=== PATIENT | female | born 1960 | race Caucasian/White ===

== ENCOUNTER → 2018-10-02 07:27 | Outpatient (CLI) | payer BC, SELFPAY ==
[2018-10-02 08:32] LABS: Alanine Aminotransferase 18 U/L (12-78); Albumin Level 3.6 gm/dL (3.4-5.0); Alkaline Phosphatase 75 U/L (46-116); Anion Gap 12.5 mEq/L (5-15); Aspartate Amino Transferase 6 U/L (15-37); Bilirubin,Total 0.4 mg/dL (0.2-1.0); Blood Urea Nitrogen 9 mg/dL (7-18); Calcium 9.6 mg/dL (8.5-10.1); Carbon Dioxide 29 mmol/L (21.0-32.0); Chloride 103 mmol/L (98-107); Chol/HDL Ratio 5.8 (1-3.5); Cholesterol 230 mg/dL (140-200); Creatinine,Serum 0.56 mg/dL (0.55-1.02); Estimated Glomerular Filt Rate 112 ml/min (>60); GFR (African American) 135 ML/MIN (>60); Globulin 3.6 gm/dl (1.3-3.2); Glucose 120 mg/dL (74-106); HDL Cholesterol 40 mg/dL (29-89); LDL Cholesterol 147 mg/dL (0-130); Potassium 4.5 mmoL/L (3.5-5.1); Sodium 140 mmol/L (136-145); Total Protein,Serum 7.2 gm/dL (6.4-8.2); Triglycerides 215 mg/dL (30-200); VLDL Cholesterol 43 mg/dL (0-40)
== END ==
PROVIDERS: Visit Provider Nurse Practitioner Family
DX: E78.2 Mixed hyperlipidemia (principal); R73.03 Prediabetes; I10 Essential (primary) hypertension
CPT/HCPCS: 36415; 80053; 80061; 83036

== ENCOUNTER → 2018-10-16 10:41 | Outpatient (CLI) | payer BC, SELFPAY ==
--- NOTE | 2018-10-16 10:44 | MM_ITS ---
MM Dig screening mamm BI w/CAD ORDERING PHYSICIAN : Yue Snowden PATIENT AGE: 58 years GENDER: Female COMPARISON: April 2015, August 2016, September 2017 INDICATION: ITS.REASON: SCREENING no normal. No new complaints. Previous cyst aspiration left breast. It. Family history. Unremarkable. TECHNIQUE: Standard CC and MLO images were obtained. R2 CAD reviewed. . Additional CC nipple profile views bilaterally were included today FINDINGS:. Minimal fibroglandular elements bilaterally with minimal fatty replacement. . No suspicious or dominant mass. No suspicious calcifications. Minimal residual fibroglandular elements appears similar to previous studies. Stable since 2014. Follow-up in one year adequate . IMPRESSION: Stable bilateral mammogram. No areas of concern. BI-RADS Category: 1 Negative RECOMMENDED FOLLOW-UP: 1YR 1 YEAR FOLLOW-UP (A letter has been sent to the patient regarding results of the study.)
== END ==
PROVIDERS: PCP Nurse Practitioner Family; Visit Provider Nurse Practitioner Family
DX: Z12.31 Encounter for screening mammogram for malignant neoplasm of breast (principal)
CPT/HCPCS: 77067

== ENCOUNTER → 2019-09-24 13:10 | Outpatient (CLI) | payer BC, SELFPAY ==
[2019-09-24 14:11] LABS: Hemoglobin A1C 6.1 % (0.0-7.0)
[2019-09-24 14:30] LABS: Basophils % 0.3 % (0.1-2.0); Eosinophils # 0.1 K/mm3 (0.0-0.4); Eosinophils % 1.3 % (0.1-12.0); Hematocrit 42.5 % (37.0-47.0); Hemoglobin 14.1 g/dL (12.2-16.2); Lymphocytes # 2.4 K/mm3 (0.7-4.5); Lymphocytes % 26.1 % (10-50); Mean Corpuscular HGB Conc 33.2 g/dL (31.8-35.4); Mean Corpuscular Hemoglobin 29.2 pg (27.0-31.2); Mean Corpuscular Volume 87.8 fl (81-99); Mean Platelet Volume 7.7 fl (7.4-10.4); Monocytes # 0.4 K/mm3 (0.1-1.0); Monocytes % 4.1 % (1.7-9.3); Neutrophils # 6.1 K/mm3 (1.8-7.8); Neutrophils % 68.1 % (37.0-80.0); Platelet Count 308 K/mm3 (142-424); Red Blood Count 4.84 M/mm3 (4.20-5.40); Red Cell Distribution Width 11.9 % (11.5-17.5)
[2019-09-24 15:16] LABS: Alanine Aminotransferase 17 U/L (12-78); Albumin Level 3.9 gm/dL (3.4-5.0); Albumin/Globulin Ratio 1.1 (1.1-1.8); Alkaline Phosphatase 79 U/L (46-116); Anion Gap 12.8 mEq/L (5-15); Aspartate Amino Transferase 14 U/L (15-37); Bilirubin,Total 0.4 mg/dL (0.2-1.0); Blood Urea Nitrogen 7 mg/dL (7-18); Calcium 9.8 mg/dL (8.5-10.1); Carbon Dioxide 26 mmol/L (21.0-32.0); Chloride 103 mmol/L (98-107); Cholesterol 199 mg/dL (140-200); Creatinine,Serum 0.54 mg/dL (0.55-1.02); Estimated Glomerular Filt Rate 116 ml/min (>60); GFR (African American) 140 ML/MIN (>60); Globulin 3.4 gm/dl (1.3-3.2); Glucose 114 mg/dL (74-106); HDL Cholesterol 40 mg/dL (29-89); LDL Cholesterol 130 mg/dL (0-130); Potassium 3.8 mmoL/L (3.5-5.1); Sodium 138 mmol/L (136-145); Thyroid Stimulating Hormone 1.37 uIU/ml (0.358-3.740); Total Protein,Serum 7.3 gm/dL (6.4-8.2); Triglycerides 143 mg/dL (30-200); VLDL Cholesterol 29 mg/dL (0-40)
[2019-09-25 09:20] LABS: Vitamin B12 426 pg/mL (232-1245)
== END ==
PROVIDERS: Visit Provider Nurse Practitioner Family
DX: I10 Essential (primary) hypertension (principal); E78.2 Mixed hyperlipidemia; R73.03 Prediabetes; E04.9 Nontoxic goiter, unspecified; R53.81 Other malaise
CPT/HCPCS: 36415; 80053; 80061; 82607; 82652; 83036; 84443; 85025

== ENCOUNTER → 2021-04-29 10:11 | Outpatient (CLI) | payer BC, SELFPAY ==
--- NOTE | 2021-04-29 10:14 | MM_ITS ---
PROCEDURE: MM DIG SCREENING MAMM BI W/CAD Digital Breast Tomosynthesis Included CLINICAL INDICATION: SCREENING COMPARISON: MG DMSB DIG MAMM-SCREEN CHERIE from 09/10/2016 MG DMSB DIG MAMM-SCREEN CHERIE W/CAD from 09/30/2017 MG SCBI MM Dig screening mamm BI w/CAD from 10/16/2018 TECHNIQUE: Standard CC and MLO images and 3D Tomosynthesis was obtained. R2 CAD reviewed. FINDINGS: Breast parenchyma is heterogeneously dense which may lower the sensitivity of mammography. No new dominant mass. No suspicious type microcalcifications or indirect evidence of malignancy. IMPRESSION: Normal bilateral digital screening mammograms. BI-RAD Category: 1 Negative FOLLOW-UP: 1 YR 1 Year Follow-up (A letter has been sent to the patient regarding results of the study.) Dictated by: Capo Vincent MD 04/30/2021 13:14 Capo Vincent MD in [place] 04/30/2021 13:14
== END ==
PROVIDERS: PCP Internal Medicine Adolescent Medicine; Visit Provider Nurse Practitioner Family
DX: Z12.31 Encounter for screening mammogram for malignant neoplasm of breast (principal)
CPT/HCPCS: 77063; 77067

== ENCOUNTER → 2022-08-24 12:48 | Outpatient (CLI) | payer BC, SELFPAY ==
--- NOTE | 2022-08-24 12:55 | MM_ITS ---
PROCEDURE INFORMATION: Exam: MG Bilateral Screening 3D Mammography Exam date and time: 08/24/2022 12:59 PM Age: 62 years old Clinical indication: Screening examination TECHNIQUE: Imaging protocol: Bilateral Screening tomosynthesis and 2D mammography including computer-aided detection (CAD) when performed. COMPARISON: 1. MG MM DIG SCREENING MAMM BI W/CAD 04/29/2021 10:27 AM 2. MG SCBI MM Dig screening mamm BI w/CAD 10/16/2018 10:59 AM FINDINGS: MAMMOGRAPHY: Breast composition: There are scattered areas of fibroglandular density. Mass: None. Architectural distortion: None. Calcifications: No suspicious calcifications. Asymmetric density: None. Skin thickening: None. Axillary adenopathy: None. IMPRESSION: No mammographic evidence of malignancy. Annual screening is recommended unless otherwise clinically indicated. ASSESSMENT: BI-RADS Category 1: Negative
== END ==
PROVIDERS: PCP Internal Medicine Adolescent Medicine; Visit Provider Nurse Practitioner Family
DX: Z12.31 Encounter for screening mammogram for malignant neoplasm of breast (principal)
CPT/HCPCS: 77063; 77067

== ENCOUNTER → 2022-09-22 14:15 | Outpatient (CLI) | payer BC, SELFPAY ==
--- NOTE | 2022-09-22 14:22 | US_ITS ---
FINAL REPORT CLINICAL HISTORY: ATYPICAL SQUAMOUS CELLS, FINDINGS: Transvaginal sonographic images of the pelvis were obtained. The uterus measures 5.6 x 3.6 x 3.8 cm. There are multiple hypoechoic heterogeneous areas in the myometrium consistent with uterine fibroids. The endometrium is normal. The right ovary measures 1.6 x 1.6 x 0.93 cm. The left ovary measures 2.3 x 0.75 x 1.2 cm. There is a small anechoic structure in the right ovary measuring 8 mm consistent with a small cyst. No fluid is seen in the cul-de-sac. IMPRESSION: Fibroid uterus. Reviewed, Interpreted and Dictated by Jose Martin Myers MD Transcribed by Mandie Hensley Authenticated and . [facility]
== END ==
PROVIDERS: PCP Internal Medicine Adolescent Medicine; Visit Provider Nurse Practitioner Family
DX: R87.610 Atypical squamous cells of undetermined significance on cytologic smear of cervix (ASC-US) (principal)
CPT/HCPCS: 76830

== ENCOUNTER → 2023-07-14 07:21 | Outpatient (CLI) | payer BC, SELFPAY ==
[2023-07-14 07:46] LABS: Basophils # 0.1 K/mm3 (0-0.2); Basophils % 0.9 % (0.1-2.0); Eosinophils # 0.1 K/mm3 (0.0-0.4); Eosinophils % 1.9 % (0.1-12.0); Hematocrit 42.3 % (37.0-47.0); Hemoglobin 14.6 g/dL (12.2-16.2); Lymphocytes # 1.8 K/mm3 (0.7-4.5); Lymphocytes % 29.5 % (10-50); Mean Corpuscular HGB Conc 34.5 g/dL (31.8-35.4); Mean Corpuscular Hemoglobin 29.7 pg (27.0-31.2); Mean Corpuscular Volume 86.1 fl (81-99); Mean Platelet Volume 7.6 fl (7.4-10.4); Monocytes # 0.4 K/mm3 (0.1-1.0); Monocytes % 6.2 % (1.7-9.3); Neutrophils # 3.8 K/mm3 (1.8-7.8); Neutrophils % 61.4 % (37.0-80.0); Platelet Count 228 K/mm3 (142-424); Red Blood Count 4.91 M/mm3 (4.20-5.40); Red Cell Distribution Width 12.2 % (11.5-17.5); White Blood Count 6.2 K/mm3 (4.8-10.8)
[2023-07-14 10:52] LABS: Alanine Aminotransferase 14 U/L (12-78); Albumin Level 4.2 g/dl (3.5-5.0); Albumin/Globulin Ratio 1.4 (1.1-1.8); Alkaline Phosphatase 72 U/L (38-126); Amylase 72 U/L (30-110); Anion Gap 12.2 mEq/L (5-15); Aspartate Amino Transferase 20 U/L (14-36); Bilirubin,Total 0.5 mg/dl (0.2-1.3); Blood Urea Nitrogen 6 mg/dl (7-17); Calcium 9.8 mg/dl (8.4-10.2); Carbon Dioxide 27 mmol/L (22.0-30.0); Chloride 102 mmol/L (98-107); Chol/HDL Ratio 5.7 (1-3.5); Cholesterol 222 mg/dl (140-200); Estimated Glomerular Filt Rate 101 ml/min (>60); GFR (African American) 123 ML/MIN (>60); Glucose 107 mg/dl (74-100); HDL Cholesterol 39 mg/dl (40-60); Lipase 59 U/L (23-300); Potassium 4.2 mmoL/L (3.5-5.1); Sodium 137 mmol/L (136-145); Total Protein,Serum 7.2 g/dl (6.3-8.2); Triglycerides 194 mg/dl (30-150); VLDL Cholesterol 39 mg/dL (0-40)
[2023-07-14 11:02] LABS: Direct LDL Cholesterol 130.37 mg/dL (100-129)
[2023-07-14 11:03] LABS: 25-OH Vitamin D, Total 33.4 ng/mL (30-100)
[2023-07-14 16:10] LABS: Hemoglobin A1C 5.7 % (4.0-6.0)
== END ==
PROVIDERS: PCP Nurse Practitioner Family; Visit Provider Nurse Practitioner Family
DX: Z00.00 Encounter for general adult medical examination without abnormal findings (principal); I10 Essential (primary) hypertension; R73.03 Prediabetes; E78.2 Mixed hyperlipidemia
CPT/HCPCS: 36415; 80053; 80061; 82150; 82306; 83036; 83690; 85025

== ENCOUNTER → 2023-09-08 09:50 | Outpatient (CLI) | payer BC, SELFPAY ==
--- NOTE | 2023-09-08 09:53 | MM_ITS ---
PROCEDURE INFORMATION: Exam: MG Bilateral Screening 3D Mammography Exam date and time: 09/08/2023 9:57 AM Age: 63 years old Clinical indication: Screening examination TECHNIQUE: Imaging protocol: Bilateral Screening tomosynthesis and 2D mammography including computer-aided detection (CAD) when performed. COMPARISON: 1. MG MM DIG SCREENING MAMM BI W/CAD 08/24/2022 12:59 PM 2. MG MM DIG SCREENING MAMM BI W/CAD 04/29/2021 10:27 AM 3. MG SCBI MM Dig screening mamm BI w/CAD 10/16/2018 10:59 AM FINDINGS: MAMMOGRAPHY: Breast composition: There are scattered areas of fibroglandular density. Mass: No suspicious masses. Architectural distortion: No suspicious distortion. Calcifications: No suspicious calcifications. Asymmetric density: None. Skin thickening: None. Axillary adenopathy: None. IMPRESSION: No mammographic evidence of malignancy. Annual screening is recommended unless otherwise clinically indicated. ASSESSMENT: BI-RADS Category 1: Negative
== END ==
PROVIDERS: PCP Nurse Practitioner Family; Visit Provider Nurse Practitioner Family
DX: Z12.31 Encounter for screening mammogram for malignant neoplasm of breast (principal)
CPT/HCPCS: 77063; 77067

== ENCOUNTER → 2023-09-29 13:50 | Outpatient (CLI) | payer BC, SELFPAY ==
--- NOTE | 2023-09-29 13:58 | MM_ITS ---
PROCEDURE INFORMATION: Exam: US Right Breast, Complete MG Right Diagnostic Breast Tomosynthesis Exam date and time: 09/29/2023 1:59 PM Age: 63 years old Clinical indication: Patient recalled on the basis of a screening mammogram for further evaluation; Right breast; mass TECHNIQUE: Imaging protocol: Complete ultrasound of all four quadrants of the right breast and the retroareolar regions, including ultrasound of the axilla when performed. Right Diagnostic tomosynthesis and 2D mammography including computer-aided detection (CAD) when performed. Unilateral or bilateral exam. COMPARISON: MG MM DIG SCREENING MAMM BI W/CAD 09/08/2023 9:57 AM FINDINGS: MAMMOGRAPHY: Digital diagnostic spot compression views of the right breast and 90 degree lateral view of the right breast demonstrate normal overlapping fibroglandular structures without persistent mass or asymmetry identified. 0.3 cm fat containing and normal appearing lymph node is noted overlying the left axilla in the MLO projection. ULTRASOUND: Sonographic images of the right breast including the retroareolar region, all 4 quadrants and the axilla do not demonstrate any solid masses. Incidental 0.3 cm upper outer quadrant cyst 2 cm from the nipple. No architectural distortion or acoustical shadowing. No skin thickening or axillary adenopathy. IMPRESSION: No mammographic or sonographic evidence of malignancy. Annual bilateral mammographic screening is recommended unless otherwise clinically indicated. ASSESSMENT: BI-RADS Category 2: Benign
== END ==
PROVIDERS: PCP Nurse Practitioner Family; Visit Provider Nurse Practitioner Family
DX: R92.8 Other abnormal and inconclusive findings on diagnostic imaging of breast (principal)
CPT/HCPCS: 76641; 77061; 77065; G0279

== ENCOUNTER 2024-02-06 14:01 | Outpatient (CLI) | payer BC, SELFPAY ==
--- NOTE | 2024-02-06 14:09 | XR_ITS ---
FINAL REPORT CLINICAL HISTORY: LT THUMB PAIN, possible metal foreign body distal left thumb. COMPARISON: None FINDINGS: AP, oblique and lateral views of the left thumb were obtained. There is no prior exam for comparison. There is no acute fracture or dislocation. No evidence of a radiopaque foreign body is seen. However there is advanced hypertrophic change. Of osteoarthritis primarily at the basilar joint, with fragmentation and osteophytes at that articulation. The soft tissues appear normal. IMPRESSION: No acute osseous abnormality of the left thumb. 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 Reviewed, Interpreted and Dictated by Jose Martin Myers MD Transcribed by Neelam Bolanos Authenticated and [facility]
== END 2024-02-06 23:59 ==
LOC: RAD 14:03
PROVIDERS: PCP Nurse Practitioner Family; Visit Provider Nurse Practitioner Family
DX: M79.645 Pain in left finger(s) (principal)
CPT/HCPCS: 73140

== ENCOUNTER 2024-09-07 07:46 | Outpatient (CLI) | payer BC, SELFPAY ==
--- NOTE | 2024-09-07 07:59 | MM_ITS ---
PROCEDURE INFORMATION: Exam: MG Bilateral Screening 3D Mammography Exam date and time: 09/07/2024 7:48 AM Age: 64 years old Clinical indication: Screening examination TECHNIQUE: Imaging protocol: Bilateral Screening tomosynthesis and 2D mammography including computer-aided detection (CAD) when performed. COMPARISON: 1. MG MM DIG MAMM DX UNILAT RT CAD 09/29/2023 2:10 PM 2. MG MM DIG SCREENING MAMM BI W/CAD 09/08/2023 9:57 AM FINDINGS: MAMMOGRAPHY: Breast composition: There are scattered areas of fibroglandular density. Mass: No suspicious masses. Architectural distortion: None. Calcifications: No suspicious calcifications. Asymmetric density: None. Skin thickening: None. Axillary adenopathy: None. IMPRESSION: No mammographic evidence of malignancy. Annual screening is recommended unless otherwise clinically indicated. ASSESSMENT: BI-RADS Category 1: Negative.
--- NOTE | 2024-09-07 07:59 | XR_ITS ---
FINAL REPORT CLINICAL HISTORY: .SCREENING COMPARISON: None FINDINGS: Using L1-4, the bone mineral density of the spine is 1.071 g/cm2, corresponding to T-score of 0.2 which is within normal limits. Using the left hip, the bone mineral density of the total hip is 0.772 g/cm2, corresponding to a T-score of -1.4 which is consistent with low bone density. Using the right hip, the bone mineral density of the femoral neck is 0.671 g/cm2, corresponding to a T-score of -1.6 which is consistent with low bone density. FRAX 10 year fracture risk is 1.7% for a hip fracture and 17% for a major osteoporotic fracture. NOTE: T-score: Standard deviation compared with peak bone mass of young adult mean. *Following the recommendations of the International Society of Bone densitometry, classification of hip BMD is based on the lower of two T-scores; total hip or femoral neck. IMPRESSION: Diminished bone mineral density consistent with low bone density. Reviewed, Interpreted and Dictated by Eloy Doyle III, MD Transcribed by Claudette Marina Authenticated and [facility]
[2024-09-07 08:13] LABS: Basophils # 0.1 K/mm3 (0-0.2); Basophils % 1.4 % (0.1-2.0); Eosinophils # 0.1 K/mm3 (0.0-0.4); Eosinophils % 2.3 % (0.1-12.0); Hematocrit 40.1 % (37.0-47.0); Hemoglobin 14.2 g/dL (12.2-16.2); Lymphocytes # 1.6 K/mm3 (0.7-4.5); Lymphocytes % 33.9 % (10-50); Mean Corpuscular HGB Conc 35.3 g/dL (31.8-35.4); Mean Platelet Volume 7.6 fl (7.4-10.4); Monocytes # 0.3 K/mm3 (0.1-1.0); Monocytes % 6.9 % (1.7-9.3); Neutrophils # 2.6 K/mm3 (1.8-7.8); Neutrophils % 55.5 % (37.0-80.0); Platelet Count 188 K/mm3 (142-424); Red Blood Count 4.72 M/mm3 (4.20-5.40); Red Cell Distribution Width 12.8 % (11.5-17.5); White Blood Count 4.7 K/mm3 (4.8-10.8)
[2024-09-07 08:47] LABS: Hemoglobin A1C 5.6 % (4.0-6.0)
[2024-09-07 09:04] LABS: Albumin Level 4.3 g/dl (3.5-5.0); Chloride 106 mmol/L (98-107); Sodium 138 mmol/L (136-145)
[2024-09-07 09:05] LABS: Potassium 4.4 mmoL/L (3.5-5.1)
[2024-09-07 09:07] LABS: Alanine Aminotransferase 11 U/L (12-78); Albumin/Globulin Ratio 1.6 (1.1-1.8); Anion Gap 9.4 mEq/L (5-15); Aspartate Amino Transferase 21 U/L (14-36); Blood Urea Nitrogen 8 mg/dl (7-17); Carbon Dioxide 27 mmol/L (22.0-30.0); Estimated Glomerular Filt Rate 125 ml/min (>60); GFR (African American) 151 ML/MIN (>60); Globulin 2.7 g/dL (1.3-3.2)
[2024-09-07 09:08] LABS: Alkaline Phosphatase 48 U/L (38-126); Bilirubin,Total 0.7 mg/dl (0.2-1.3); Calcium 9.8 mg/dl (8.4-10.2); Chol/HDL Ratio 4.9 (1-3.5); Cholesterol 220 mg/dl (140-200); Glucose 112 mg/dl (74-100); HDL Cholesterol 45 mg/dl (40-60); Triglycerides 135 mg/dl (30-150); VLDL Cholesterol 27 mg/dL (0-40)
[2024-09-07 09:19] LABS: Direct LDL Cholesterol 138.82 mg/dL (100-129)
[2024-09-07 09:32] LABS: 25-OH Vitamin D, Total 24.4 ng/mL (30-100)
[2024-09-07 09:36] LABS: Thyroid Stimulating Hormone 3.03 uIU/mL (0.465-4.68)
== END 2024-09-07 23:59 | disposition home or self-care (01) ==
LOC: RAD 07:47
PROVIDERS: PCP Nurse Practitioner Family; Visit Provider Nurse Practitioner Family
DX: Z12.31 Encounter for screening mammogram for malignant neoplasm of breast (principal); Z78.0 Asymptomatic menopausal state; Z00.00 Encounter for general adult medical examination without abnormal findings; I10 Essential (primary) hypertension; E78.2 Mixed hyperlipidemia; R73.03 Prediabetes; E55.9 Vitamin D deficiency, unspecified
CPT/HCPCS: 36415; 77063; 77067; 77080; 80050; 80053; 80061; 82306; 83036; 84443; 85025

== ENCOUNTER 2025-09-10 10:48 | Outpatient (CLI) | payer BC, SELFPAY ==
--- NOTE | 2025-09-10 10:50 | MM_ITS ---
PROCEDURE INFORMATION: Exam: MG Bilateral Screening 3D Mammography Exam date and time: 09/10/2025 10:51 AM Age: 65 years old Clinical indication: Screening examination TECHNIQUE: Imaging protocol: Bilateral Screening tomosynthesis and 2D mammography including computer-aided detection (CAD) when performed. COMPARISON: 1. MG MM DIG SCREENING MAMM BI W/CAD 09/07/2024 7:48 AM 2. MG MM DIG MAMM DX UNILAT RT CAD 09/29/2023 2:10 PM 3. MG MM DIG SCREENING MAMM BI W/CAD 09/08/2023 9:57 AM FINDINGS: MAMMOGRAPHY: Breast composition: There are scattered areas of fibroglandular density. Mass: None. Architectural distortion: None. Calcifications: No suspicious calcifications. Asymmetric density: None. Skin thickening: None. Axillary adenopathy: None. IMPRESSION: No mammographic evidence of malignancy. Annual screening is recommended unless otherwise clinically indicated. ASSESSMENT: BI-RADS Category 1: Negative.
--- OUTSIDE RECORDS SUMMARY | 2025-09-10 10:50 | XMS_ITS | Encounter Summary ---
Author Organization [employer] ([place], [place], [place], [place]) Address [address] [place] [address] Care Team Providers Care Director Of Dietary Name Role Phone Nilesh Farias MD Primary Care Provider + [phone] Encounter Details Date Type Department Care Team (Late st Contact Info) Description 06/20/2025 Telephone [facility] Endoscopy [address] [place] [address] Roxy Roger RN Social History Tobacco Use Types Packs/Day Years Used Date Smoking Tobacco: Every Day Cigarettes Smokeless Tobacco: Never Alcohol Use Standard Drinks/Week Comments Not Currently 0 (1 standard drink = 0.6 oz pur e alcohol) Comments Unknown Sex and Gender Information Value Date Recorded Sex Assigned at Not on file Legal Sex Female 5:22 PM CDT Gender Identity Not on file Sexual Orientation Not on file documented as of this encounter Miscellaneous Notes * Telephone Encounter - Roxy Roger RN - 06/20/2025 9:59 AM EDT Type of Procedure:colon Date of Procedure:06/27 Arrival Time:15 Procedure Time:1018 Point of Contact:phonecall Prep (if applicable):suprep documented in this encounter Plan of Treatment Not on file documented as of this encounter Visit Diagnoses Not on filedocumented in this encounter Care Teams Director Of Dietary Relationship Specialty Start Date End Date Nilesh Farias MD [address] [place] [address] PCP - General Adolescent Medicine 06/27/25 documented as of this encounter
--- OUTSIDE RECORDS SUMMARY | 2025-09-10 10:50 | XMS_ITS | Referral Summary ---
Author Organization [employer] ([place], [place], [place], [place]) Address [address] [place] [address] Care Team Providers Care Security Agent Name Role Phone Nilesh Farias MD Primary Care Provider + [phone] Encounters Date Type Department Care Team Description 06/27/2025 10:00 AM EDT Anesthesia Event [facility] Endoscopy [address] [place] [id number] Jazmin Peterson MD 06/27/2025 10:18 AM EDT - 06/27/2025 11:12 AM EDT Surgery [facility] Endoscopy 1 [place] [id number] Rony Isbell MD COLONOSCOPY, WITH POLYPECTOMY 06/27/2025 9:24 AM EDT - 06/27/2025 11:09 AM EDT Hospital Encounter [facility] Endoscopy [address] [place] [address] Rony Isbell MD History of colon polyps Discharge Disposition: Home or Self Care 06/20/2025 Telephone [facility] Endoscopy [address] [place] [address] Roxy Roger RN from Last 3 Months Allergies Active Allergy Reactions Criticality Noted Date Comments Latex 02/28/2025 Penicillin 02/28/2025 Medications carvediloL (COREG) 25 MG tablet Take 1 tablet (25 mg total) by mouth 2 (two) times daily. Active pantoprazole (PROTONIX) 20 MG tablet Take 1 tablet (20 mg total) by mouth daily. 06/17/2025 Active Active Problems Problem Noted Date Diagnosed Date History of colon polyps 02/28/2025 Social History Tobacco Use Types Packs/Day Years Used Date Smoking Tobacco: Every Day Cigarettes Smokeless Tobacco: Never Tobacco Cessation:Ready to Q uit: Not Asked; Counseling Given: Not Answered Alcohol Use Standard Drinks/Week Comments Not Currently 0 (1 standard drink = 0.6 oz pur e alcohol) Comments No Sex and Gender Information Value Date Recorded Sex Assigned at Not on file Legal Sex Female 5:22 PM CDT Gender Identity Not on file Sexual Orientation Not on file Last Filed Vital Signs Vital Sign Reading Time Taken Comments Blood Pressure 132/76 06/27/2025 11:04 AM EDT Pulse 67 06/27/2025 10:45 AM EDT Temperature 36.3 C (97.3 F) 06/27/2025 10:50 AM EDT Respiratory Rate 40 06/27/2025 10:45 AM EDT Oxygen Saturation 97% 06/27/2025 10:45 AM EDT Inhaled Oxygen Concentration - - Weight 64.4 kg (142 lb) 06/27/2025 9:47 AM EDT Height 160 cm (5' 3 ) 06/27/2025 9:47 AM EDT Body Mass Index 25.15 06/27/2025 9:47 AM EDT Plan of Treatment Not on file Procedures Procedure Name Priority Date/Time Associated Diagnosis Comments TISSUE EXAM ([place]) AP Routine 06/27/2025 1 0:21 AM EDT History of colon polyps COLONOSCOPY, WITH POLYPECTOMY 06/27/2025 10:00 AM EDT History of colon polyps HM COLONOSCOPY Routine 07/30/2015 3:24 PM EDT from Last 3 Months or Most Recently Relevant to Health Maintenance Results * Tissue Exam (06/27/2025 10:21 AM EDT) AP RESULT See Note: [facility]Y [facility] LAB[facility] Comment: PATHOLOGY REPORT DIAGNOSIS: A. COLON, ASCENDING, POLYPECTOMY: Tubular adenoma Negative for high-grade dysplasia or malignancy B. COLON, SIGMOID; X2, POLYPECTOMY: Hyperplastic polyps Final Reviewed, Diagnosed and Electronically Signed By: XI PINZON MD CLINICAL HISTORY: Personal history of colonic polyps MICROSCOPIC DESCRIPTION: Tissue blocks are prepared and slides examined microscopically on all specimens. See diagnosis for details. GROSS DESCRIPTION: A. Received in formalin labeled ascending colon polyp are multiple shine soft tissue fragments, measuring 0.9 x 0.5 x 0.1 cm in aggregate. The specimen is filtered and submitted entirely in cassette A1. B. Received in formalin labeled sigmoid polyps x 2 are 2 shine soft tissue fragments, measuring 1.2 x 0.6 x 0.2 cm in aggregate. The specimen is filtered and submitted entirely in cassette B1. AKG See other report ([id number]) Tissue POLYP OF ASCENDING COLON / Unknown 06/27/2025 10:21 AM EDT Tissue specimen (specimen) POLYP OF SIGMOID COLON / Unknown 06/27/2025 10:26 AM EDT us Rony Isbell MD PATHOLOGY/CYTOLOGY ORDERABLES Fi nal Result PATHOLOGY AND [facility]TOLOGY LAB[facility]ATORY [address] [place] [address] * HM COLONOSCOPY (07/30/2015 3:24 PM EDT) us Althea Plunkett MD HEALTH MAINTENANCE Final Result from Last 3 Months or Most Recently Relevant to Health Maintenance Insurance BLUE CROSS/BLUE SHIELD Care Teams Security Agent Relationship Specialty Start Date End Date Nilesh Farias MD [address] [place] [id number] PCP - General Adolescent Medicine 06/27/25
--- OUTSIDE RECORDS SUMMARY | 2025-09-10 10:50 | XMS_ITS | Clinical Summary ---
Author Organization [employer] ([place], [place], [place], [place]) Address [address] [place] [address] Care Team Providers Care Machining Engineer Name Role Phone Nilesh Farias MD Primary Care Provider + [phone] Allergies Active Allergy Reactions Criticality Noted Date Comments Latex 02/28/2025 Penicillin 02/28/2025 Medications carvediloL (COREG) 25 MG tablet Take 1 tablet (25 mg total) by mouth 2 (two) times daily. Active pantoprazole (PROTONIX) 20 MG tablet Take 1 tablet (20 mg total) by mouth daily. 06/17/2025 Active Active Problems Problem Noted Date Diagnosed Date History of colon polyps 02/28/2025 Encounters Date Type Department Care Team Description 06/27/2025 10:18 AM EDT - 06/27/2025 11:12 AM EDT Surgery [facility] Endoscopy 1 [place] [address] Rony Isbell MD COLONOSCOPY, WITH POLYPECTOMY 06/27/2025 10:00 AM EDT Anesthesia Event [facility] Endoscopy 1 [place] [address] Jazmin Peterson MD 06/27/2025 9:24 AM EDT - 06/27/2025 11:09 AM EDT Hospital Encounter [facility] Endoscopy 1 [place] [address] Rony Isbell MD History of colon polyps Discharge Disposition: Home or Self Care 06/20/2025 Telephone [facility] Endoscopy 1 [place] [address] Roxy Roger RN from Last 3 Months Social History Tobacco Use Types Packs/Day Years [...] 06/27/2025 9:47 AM EDT Plan of Treatment Health Maintenance Due Date Last Done Comments CT Colonography 1961 FOBT/FIT 1961 Fit-DNA (Cologuard) 1961 Sigmoidoscopy 1961 Depression Screening (12+) 1973 Tobacco Cessation Counseling and Screening (12+) 1973 HIV Screening 1976 Hepatitis C Screening 1979 DTAP/TDAP/TD VACCINES (1 - Tdap) 1980 Pneumococcal 50+ years (1 of 2 - PCV) 1980 Pap Smear 1982 Breast Cancer Screening 2001 Lipid Panel 2006 Shingles Vaccine (Zoster) (1 of 2) 2011 COVID-19 VACCINE (1 - season) 2025 Influenza Vaccine (#1) 2025 Colonoscopy 06/27/2030 06/27/2025, 07/30/2015 Colorectal Cancer Screening 06/27/2030 Respiratory Syncytial Virus (RSV) Adult or (1 - 1-dose 75+ series) 2036 Procedures Procedure Name Priority Date/Time Associated Diagnosis [...] in cassette B1. AKG See other report ([id number]) Tissue POLYP OF ASCENDING COLON / Unknown 06/27/2025 10:21 AM EDT Tissue specimen (specimen) POLYP OF SIGMOID COLON / Unknown 06/27/2025 10:26 AM EDT us Rony Isbell MD PATHOLOGY/CYTOLOGY ORDERABLES Fi nal Result PATHOLOGY AND CYTOLOGY LABORATORY [address] * HM COLONOSCOPY (07/30/2015 3:24 PM EDT) us Althea Plunkett MD HEALTH MAINTENANCE Final Result from Last 3 Months or Most Recently Relevant to Health Maintenance Insurance BLUE CROSS/BLUE SHIELD Care Teams Machining Engineer Relationship Specialty Start Date End Date Nilesh Farias MD [address] [place] [id number] PCP - General Adolescent Medicine 06/27/25
--- OUTSIDE RECORDS SUMMARY | 2025-09-10 10:50 | XMS_ITS | Clinical Summary ---
[facility] Address [address] [place] [address] Care Team Providers Care Shale Miner Name Role Phone Nilesh Farias MD Primary Care Provider [phone] Allergies Active Allergy Reactions Criticality Noted Date Comments Penicillins 12/31/2016 Medications carvedilol (COREG) 12.5 MG tablet Take 25 mg by mouth 2 (Two) Times a Day With Meals. Active Multiple Vitamins-Mineral s (MULTI COMPLETE PO) Take by mouth Daily. Active Calcium Carbonate-Vitami n D (CALCIUM 600+D PO) Take by mouth 2 (Two) Times a Day. Active rosuvastatin (CRESTOR) 10 MG tablet Take 10 mg by mouth every night at bedtime. 0 10/02/2018 Active Active Problems Problem Noted Date Diagnosed Date Essential hypertension 10/11/2017 Mixed hyperlipidemia 10/11/2017 Family History Medical History Relation Name Comments Colon cancer Father Heart attack Father Heart disease Mother Hypertension Mother Relation Name Status Comments Father Mother Alive Social History Tobacco Use Types Packs/Day Years Used Date Smoking Tobacco: Every Day Cigarettes Smokeless Tobacco: Never Comments:1/2 PPD Alcohol Use Standard Drinks/Week Comments No 0 (1 standard drink = 0.6 oz pur e alcohol) Abuse Screen Answer Date Recorded Unsafe at Home or Work/School Not on file Feels Threatened by Someone? Not on file 07/2023 Does Anyone Keep You from Co ntacting Others or Doint Things Outside the Home? Not on file 08/22/2023 Physical Sign of Abuse Present Not on file 1 Housing Stability Answer Date Recorded Current Living Arrangements Not on file 07/2023 Potentially Unsafe Housing Conditions Not on jennifer e 08/22/2023 Family and Community Support Answer Blas e Recorded Help with Day-to-Day Activities Not on file 08/22/2023 Lonely or Isolated Not on file 08/22/2023 Employment Answer Date Recorded Do you want help finding or keeping work or a brooke b? Not on file 08/22/2023 Disabilities Answer Date Recorded Concentrating, Remembering, or Making Decisions Difficulty Not on file 08/22/2023 Doing Errands Independently Difficulty Not on fi le 08/22/2023 Education Answer Date Recorded Help with school or training? Not on file Preferred Language Not on file 08/22/2023 Comments Unknown Sex and Gender Information Value Date Recorded Sex Assigned at Not on file Legal Sex Female 10:26 AM EDT Gender Identity Not on file Sexual Orientation Not on file Last Filed Vital Signs Vital Sign Reading Time Taken Comments Blood Pressure 168/108 10/10/2018 10:40 AM EST Pulse 76 10/10/2018 10:40 AM EST Temperature - - Respiratory Rate - - Oxygen Saturation - - Inhaled Oxygen Concentration - - Weight 84.8 kg (187 lb) 10/10/2018 10:40 AM EST Height 160 cm (5' 2.99 ) 10/10/2018 10:40 AM EST Body Mass Index 33.13 10/10/2018 10:40 AM EST Plan of Treatment Health Maintenance Due Date Last Done Comments Annual Gynecologic Pelvic and Breast Exam 1961 LIPID PANEL 1961 TDAP/TD VACCINES (1 - Tdap) 1980 MAMMOGRAM 2001 COLOGUARD 2006 COLON CANCER SCREENING 5 YEAR SIGMOIDOSCOPY 2006 COLONOSCOPY [address]ER SCREENING [address] COLONOGRAPHY 2006 FECAL OCCULT BLOOD TEST 2006 FIT Testing (1 year) 2006 Pneumococcal Vaccine 50+ (1 of 1 - PCV) 2011 ZOSTER VACCINE (1 of 2) 2011 ANNUAL PHYSICAL 10/11/2017 HEPATITIS C SCREENING 10/11/2017 INFLUENZA VACCINE 06/14/[address] [place] [id number] [employer] Care Teams Shale Miner Relationship Specialty Start Date End Date Nilesh Farias MD [address] [facility] [address] [place] [id number] PCP - General Adolescent Medicine 12/31/16
== END 2025-09-10 23:59 | disposition home or self-care (01) ==
LOC: RAD 10:48
PROVIDERS: PCP Nurse Practitioner Family; Visit Provider Nurse Practitioner Family
DX: Z12.31 Encounter for screening mammogram for malignant neoplasm of breast (principal); R92.323 Mammographic fibroglandular density, bilateral breasts
CPT/HCPCS: 77063; 77067

== ENCOUNTER 2025-09-30 07:32 | Outpatient (CLI) | payer BC, SELFPAY ==
--- OUTSIDE RECORDS SUMMARY | 2025-09-30 07:35 | XMS_ITS | Clinical Summary ---
[facility] [address] [place] [address] Care Team Providers Care Brim Stiffener Name Role Phone Nilesh Farias MD Primary Care Provider [phone] Allergies Active Allergy Reactions Criticality Noted Date [...] 06/14/[address] [place] [id number] [employer] Care Teams Brim Stiffener Relationship Specialty Start Date End Date Nilesh Farias MD [address] [facility] [address] [place] [id number] PCP - General Adolescent Medicine 12/31/16
--- OUTSIDE RECORDS SUMMARY | 2025-09-30 07:35 | XMS_ITS | Referral Summary ---
Author Organization [employer] ([place], [place], [place], [place], [place]) Address [address] [place] [address] Care Team Providers Care Gas Jockey Name Role Phone Nilesh Farias MD Primary Care Provider + [phone] Allergies Active Allergy Reactions Criticality Noted Date [...] Procedure Name Priority Date/Time Associated Diagnosis Comments HM COLONOSCOPY Routine 07/30/2015 3:24 PM EDT from Last 3 Months or Most Recently Relevant to Health Maintenance Results * HM COLONOSCOPY (07/30/2015 3:24 PM EDT) us Althea Plunkett MD HEALTH MAINTENANCE Final Result from Last 3 Months or Most Recently Relevant to Health Maintenance Insurance [employer] [place] [facility] [id number] BLUE CROSS/BLUE SHIELD Care Teams Gas Jockey Relationship Specialty Start Date End Date Nilesh Farias MD [address] [place] [id number] PCP - General Adolescent Medicine 06/27/25
--- OUTSIDE RECORDS SUMMARY | 2025-09-30 07:36 | XMS_ITS | Clinical Summary ---
Author Organization [employer] ([place], [place], [place], [place], [place]) Address [address] [place] [address] Care Team Providers Care Surveillance System Monitor Name Role Phone Nilesh Farias MD Primary Care Provider + [phone] Allergies Active Allergy Reactions Criticality Noted Date [...] Procedure Name Priority Date/Time Associated Diagnosis Comments COLONOSCOPY Routine 07/30/2015 3:24 PM EDT from Last 3 Months or Most Recently Relevant to Health Maintenance Results * HM COLONOSCOPY (07/30/2015 3:24 PM EDT) us Althea Plunkett MD HEALTH MAINTENANCE Final Result from Last 3 Months or Most Recently Relevant to Health Maintenance [place] [id number] BLUE CROSS/BLUE SHIELD Care Teams Surveillance System Monitor Relationship Specialty Start Date End Date Nilesh Farias MD [address] [place] [id number] PCP - General Adolescent Medicine 06/27/25
[2025-09-30 08:10] LABS: Hematocrit 38.3 % (37.0-47.0); Hemoglobin 13.3 g/dL (12.2-16.2); Immature Granulocytes % 0.2 %; Mean Corpuscular HGB Conc 34.7 g/dL (31.8-35.4); Mean Corpuscular Hemoglobin 29.6 pg (27.0-31.2); Mean Corpuscular Volume 85.1 fl (81-99); Nucleated Red Blood Cells % 0 %; Platelet Count 196 K/mm3 (142-424); Red Blood Count 4.50 M/mm3 (4.20-5.40); Red Cell Distribution Width-SD 35.5 fL; White Blood Count 5.5 K/mm3 (4.8-10.8)
[2025-09-30 08:46] LABS: Alanine Aminotransferase 11 U/L (12-78); Albumin Level 4.2 g/dl (3.5-5.0); Albumin/Globulin Ratio 1.5 (1.1-1.8); Alkaline Phosphatase 62 U/L (38-126); Anion Gap 6.9 mEq/L (5-15); Aspartate Amino Transferase 22 U/L (14-36); Bilirubin,Total 0.6 mg/dl (0.2-1.3); Blood Urea Nitrogen 9 mg/dl (7-17); Calcium 10.0 mg/dl (8.4-10.2); Carbon Dioxide 28 mmol/L (22.0-30.0); Chloride 105 mmol/L (98-107); Cholesterol 228 mg/dl (140-200); Creatinine,Serum 0.50 mg/dl (0.52-1.04); Estimated Glomerular Filt Rate 124 ml/min (>60); GFR (African American) 150 ML/MIN (>60); Globulin 2.8 g/dL (1.3-3.2); Glucose 105 mg/dl (74-100); HDL Cholesterol 40 mg/dl (40-60); Potassium 3.9 mmoL/L (3.5-5.1); Sodium 136 mmol/L (136-145); Total Protein,Serum 7.0 g/dl (6.3-8.2); Triglycerides 159 mg/dl (30-150)
[2025-09-30 09:03] LABS: 25-OH Vitamin D, Total 26.0 ng/mL (30-100)
[2025-09-30 11:56] LABS: Hemoglobin A1C 5.8 % (4.0-6.0)
== END 2025-09-30 23:59 | disposition home or self-care (01) ==
LOC: LAB 07:33
PROVIDERS: PCP Nurse Practitioner Family; Visit Provider Nurse Practitioner Family
DX: Z00.00 Encounter for general adult medical examination without abnormal findings (principal); E78.2 Mixed hyperlipidemia; R73.03 Prediabetes; E55.9 Vitamin D deficiency, unspecified
CPT/HCPCS: 36415; 80053; 80061; 82306; 83036; 85025